=== PATIENT | female | born 1950 | race Caucasian/White ===

== ENCOUNTER → 2020-09-01 | Outpatient (REF) | payer MEDICARE ==
[2020-09-02 13:11] LABS: HEMATOCRIT 38.6 % (36.0-47.0); HEMOGLOBIN 12.3 g/dl (12.0-15.5); MEAN CORPUSCULAR HEMOGLOBIN 30.5 pg (27.0-33.0); MEAN CORPUSCULAR HGB CONC 31.9 g/dl (32.0-36.5); MEAN CORPUSCULAR VOLUME 95.8 fl (80.0-96.0); RED BLOOD COUNT 4.03 10^6/uL (4.00-5.40); WHITE BLOOD COUNT 6.9 10^3/uL (4.0-10.0)
[2020-09-02 13:12] LABS: BASO # 0.1 10^3/uL (0.0-0.2); BASO % 1.6 % (0.0-1.0); EOS # 0.2 10^3/uL (0.0-0.5); EOS % 3.1 % (0.0-3.0); LYMPH # 1.2 10^3/uL (1.5-5.0); LYMPH % 17.5 % (24.0-44.0); MONO # 0.8 10^3/uL (0.0-0.8); MONO % 11.4 % (2.0-8.0); NEUTROPHILS # 4.5 10^3/uL (1.5-8.5); NEUTROPHILS % 66.1 % (36.0-66.0); PLATELET COUNT, AUTOMATED 256 10^3/uL (150-450)
[2020-09-02 13:58] LABS: FOLATE 15.7 NG/ML; FREE T4 1.05 NG/DL (0.76-1.46); VITAMIN B12 LEVEL > 2000 PG/ML
== END ==
LOC: M SFHCADAM 15:03
PROVIDERS: ATTEND Physician Assistant
DX: D72.810 Lymphocytopenia (principal); G62.9 Polyneuropathy, unspecified; Z79.899 Other long term (current) drug therapy

== ENCOUNTER → 2020-10-22 | Outpatient (REF) | payer MEDICARE ==
[2020-10-22 18:05] LABS: INR 0.94; PROTHROMBIN TIME 12.8 SECONDS (12.5-14.3)
[2020-10-22 18:06] LABS: PARTIAL THROMBOPLASTIN TIME 29.9 SECONDS (24.2-38.5)
[2020-10-22 18:27] LABS: BASO # 0.1 10^3/uL (0.0-0.2); BASO % 1.6 % (0.0-1.0); EOS # 0.1 10^3/uL (0.0-0.5); EOS % 1.4 % (0.0-3.0); HEMATOCRIT 40.1 % (36.0-47.0); HEMOGLOBIN 12.9 g/dl (12.0-15.5); LYMPH # 1.3 10^3/uL (1.5-5.0); MEAN CORPUSCULAR HEMOGLOBIN 29.7 pg (27.0-33.0); MEAN CORPUSCULAR HGB CONC 32.2 g/dl (32.0-36.5); MEAN CORPUSCULAR VOLUME 92.4 fl (80.0-96.0); MONO # 0.7 10^3/uL (0.0-0.8); MONO % 10.5 % (2.0-8.0); NEUTROPHILS # 4.8 10^3/uL (1.5-8.5); NEUTROPHILS % 67.1 % (36.0-66.0); PLATELET COUNT, AUTOMATED 238 10^3/uL (150-450); RED BLOOD COUNT 4.34 10^6/uL (4.00-5.40); WHITE BLOOD COUNT 7.1 10^3/uL (4.0-10.0)
[2020-10-22 18:31] LABS: ALBUMIN 3.9 GM/DL (3.2-5.2); ALT/SGPT 25 U/L (12-78); BILIRUBIN,TOTAL 0.4 MG/DL (0.2-1.0); BLOOD UREA NITROGEN 21 MG/DL (7-18); CALCIUM LEVEL 9.2 MG/DL (8.8-10.2); CARBON DIOXIDE LEVEL 30 MEQ/L (21-32); CHLORIDE LEVEL 107 MEQ/L (98-107); CHOLESTEROL LEVEL 185 MG/DL (<200); CHOLESTEROL RISK RATIO 2.434 (<5); CREATININE FOR GFR 0.71 MG/DL (0.55-1.30); GLOMERULAR FILTRATION RATE > 60.0 (>45); GLUCOSE, FASTING 88 MG/DL (70-100); HDL CHOLESTEROL 76 MG/DL (>40); LDL CHOLESTEROL 86 MG/DL (<100); NON-HDL-C 109 MG/DL; POTASSIUM SERUM 4.1 MEQ/L (3.5-5.1); SODIUM LEVEL 142 MEQ/L (136-145); TOTAL PROTEIN 7.1 GM/DL (6.4-8.2); TRIGLYCERIDES LEVEL 115 MG/DL (<150)
[2020-10-22 18:36] LABS: TOTAL 25(OH) VITAMIN D 46.4 NG/ML (30.0-100.0)
== END ==
LOC: M SFHCADAM 16:10
PROVIDERS: ATTEND Physician Assistant
DX: R49.0 Dysphonia (principal); I10 Essential (primary) hypertension; R23.8 Other skin changes; E78.00 Pure hypercholesterolemia, unspecified; M81.0 Age-related osteoporosis without current pathological fracture; M79.7 Fibromyalgia

== ENCOUNTER → 2020-11-18 | Outpatient (CLI) | payer MEDICARE | LOC: M WHC 13:23 | PROVIDERS: ATTEND Physician Assistant | DX: Z12.31 Encounter for screening mammogram for malignant neoplasm of breast (principal); M81.0 Age-related osteoporosis without current pathological fracture ==

== ENCOUNTER → 2020-11-18 | Outpatient (CLI) | payer MEDICARE ==
--- NOTE | 2020-11-18 14:56 | REP ---
INDICATION: ACUTE PAIN OF LEFT SHOULDER. COMPARISON: None. TECHNIQUE: Two views FINDINGS: There is no acute fracture or destructive osseous lesion IMPRESSION: Negative left clavicle <Electronically signed by Elijah Martinez > 11/18/20 [id number]
--- NOTE | 2020-11-18 15:01 | REP ---
INDICATION: ACUTE PAIN OF LEFT SHOULDER. COMPARISON: None. TECHNIQUE: Three views of the left shoulder were performed. FINDINGS: The acromioclavicular and glenohumeral relationships are within normal limits. There is no acute fracture or destructive osseous lesion. A few calcifications are seen in the soft tissues superior to the greater humeral tuberosity within the subacromial space. IMPRESSION: Soft tissue calcifications as described above suggestive of chronic calcific supraspinatus tendinitis. Follow-up with MRI is suggested if clinically relevant. <Electronically signed by Elijah Martinez > 11/18/20 [id number]
== END ==
LOC: M ADAMS 14:38
PROVIDERS: ATTEND Physician Assistant
DX: M25.512 Pain in left shoulder (principal)

== ENCOUNTER → 2020-12-11 | Outpatient (CLI) | payer MEDICARE ==
--- NOTE | 2020-12-11 16:16 | REP ---
INDICATION: RIB PAIN R SIDE. FINDINGS: Multiple views of the right ribs show no fracture or osseous lesion. The accompanying frontal view of the chest shows no cardiomegaly, infiltrates, effusions, or pneumothoraces. IMPRESSION: Negative right rib series. <Electronically signed by Elijah Martinez > 12/11/20 [id number]
--- NOTE | 2020-12-11 16:22 | REP ---
INDICATION: LEFT ELBOW PAIN. COMPARISON: None TECHNIQUE: Four views FINDINGS: There is no acute fracture, dislocation, subluxation, or joint effusion. IMPRESSION: Within normal limits <Electronically signed by Elijah Martinez > 12/11/20 [id number]
== END ==
LOC: M ADAMS 14:19
PROVIDERS: ATTEND Family Medicine
DX: R07.81 Pleurodynia (principal); M25.522 Pain in left elbow

== ENCOUNTER → 2021-02-08 | Outpatient (CLI) | payer MEDICARE ==
--- NOTE | 2021-02-08 14:04 | REP ---
INDICATION: NODULE OF CHEST WALL. COMPARISON: None. TECHNIQUE: Real-time sonographic evaluation of a palpable abnormality left upper chest. FINDINGS: There are no cystic or solid masses. IMPRESSION: Negative ultrasound examination does not obviate further anatomical imaging with modalities such as MRI if a soft tissue mass is of clinical concern. Pre and post gadolinium enhanced MRI is suggested. <Electronically signed by Elijah Martinez > 02/08/21 1400
== END ==
LOC: M RAD 12:56
PROVIDERS: ATTEND Physician Assistant
DX: R22.2 Localized swelling, mass and lump, trunk (principal)

== ENCOUNTER → 2021-02-11 | Outpatient (REF) | payer MEDICARE | LOC: M LAB REF 19:02 | PROVIDERS: ATTEND Physician Assistant | DX: R09.82 Postnasal drip (principal) ==

== ENCOUNTER → 2021-02-11 | Outpatient (CLI) | payer MEDICARE ==
--- NOTE | 2021-02-11 14:32 | REP ---
INDICATION: PAIN IN LUMBAR SPINE. COMPARISON: None. TECHNIQUE: Five views of the lumbar spine are provided. FINDINGS: Lumbar vertebral body heights are preserved. There is degenerative disc disease at L4-5 with osteoarthritic facet sclerosis and hypertrophy bilaterally at L4-5. There is a degenerative grade 1, 5 mm, L4-5 spondylolisthesis. There is also mild discogenic spurring anteriorly at L3-4 and L2-3. There is no evidence of spondylolysis. Facet hypertrophy is also present at L5-S1 bilaterally and to a lesser extent at L3-4. Psoas margins are symmetric. There are clips in right upper quadrant of the abdomen. Sacrum and SI joints are intact. 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 No pars defect is seen. <Electronically signed by Delfino Johnson > 02/11/21 [id number]
--- NOTE | 2021-02-11 14:33 | REP ---
INDICATION: PAIN IN THORACIC SPINE. COMPARISON: None. TECHNIQUE: Four views of the thoracic spine. FINDINGS: Patient is status post ventral discectomy and fusion plating C4 through T1. Thoracic vertebral body heights are preserved alignment is normal. There is discogenic spurring anteriorly at the mid thoracic levels. Pedicles and posterior elements are intact. No paravertebral soft tissue mass is seen. No bony destructive lesion is seen. There are surgical clips in right upper quadrant of the abdomen is well. IMPRESSION: Degenerative disc spurs associated spurring. Ventral discectomy and fusion plating in the lower cervical spine. No acute abnormality. <Electronically signed by Delfino Johnson > 02/11/21 [id number]
== END ==
LOC: M ADAMS 13:55
PROVIDERS: ATTEND Physician Assistant
DX: M46.96 Unspecified inflammatory spondylopathy, lumbar region (principal); M43.16 Spondylolisthesis, lumbar region; M51.36 Other intervertebral disc degeneration, lumbar region; M25.78 Osteophyte, vertebrae; M43.25 Fusion of spine, thoracolumbar region

== ENCOUNTER → 2021-02-17 | Outpatient (REF) | payer MEDICARE ==
[2021-02-17 17:37] LABS: BLOOD UREA NITROGEN 24 MG/DL (7-18); CALCIUM LEVEL 9.5 MG/DL (8.8-10.2); CARBON DIOXIDE LEVEL 29 MEQ/L (21-32); CHLORIDE LEVEL 109 MEQ/L (98-107); CREATININE FOR GFR 0.81 MG/DL (0.55-1.30); GLOMERULAR FILTRATION RATE > 60.0 (>45); GLUCOSE, FASTING 83 MG/DL (70-100); POTASSIUM SERUM 4.2 MEQ/L (3.5-5.1); SODIUM LEVEL 141 MEQ/L (136-145)
== END ==
LOC: M SFHCADAM 14:18
PROVIDERS: ATTEND Physician Assistant
DX: I10 Essential (primary) hypertension (principal)

== ENCOUNTER → 2021-02-26 | Outpatient (CLI) | payer MEDICARE ==
--- NOTE | 2021-02-26 11:17 | REP ---
INDICATION: SOFT TISSUE NODULE NEAR MEDIAL ASPECT OF LCLAVICLE. COMPARISON: None. TECHNIQUE: 3T multiplanar MRI imaging of the left sternoclavicular joint was obtained using various sequences. FINDINGS: The technologist placed skin markers proximal in distal to the region of interest over the left sternoclavicular joint. There is a slight degree of left sternoclavicular joint hypertrophic change compared to the right. This is seen particularly anteriorly. There are no abnormal sternoclavicular joint fluid collections. The cortical and marrow signal seen throughout the exam is within normal limits. IMPRESSION: Mild left sternoclavicular joint hypertrophic change. <Electronically signed by Elijah Martinez > 02/26/21 [id number]
== END ==
LOC: M PLARAD 08:28
PROVIDERS: ATTEND Physician Assistant
DX: M79.89 Other specified soft tissue disorders (principal)

== ENCOUNTER → 2021-05-20 | Outpatient (REF) | payer MEDICARE ==
[2021-05-20 17:21] LABS: BASO # 0.1 10^3/uL (0.0-0.2); BASO % 1.3 % (0.0-1.0); EOS # 0.1 10^3/uL (0.0-0.5); EOS % 1.5 % (0.0-3.0); HEMATOCRIT 38.3 % (36.0-47.0); HEMOGLOBIN 12.3 g/dl (12.0-15.5); LYMPH # 1.3 10^3/uL (1.5-5.0); MEAN CORPUSCULAR HEMOGLOBIN 30.2 pg (27.0-33.0); MEAN CORPUSCULAR HGB CONC 32.1 g/dl (32.0-36.5); MEAN CORPUSCULAR VOLUME 94.1 fl (80.0-96.0); MONO # 0.5 10^3/uL (0.0-0.8); MONO % 9.8 % (2.0-8.0); NEUTROPHILS # 3.4 10^3/uL (1.5-8.5); PLATELET COUNT, AUTOMATED 250 10^3/uL (150-450); RED BLOOD COUNT 4.07 10^6/uL (4.00-5.40); WHITE BLOOD COUNT 5.4 10^3/uL (4.0-10.0)
[2021-05-20 17:25] LABS: ALBUMIN 4.3 GM/DL (3.2-5.2); ALT/SGPT 42 U/L (12-78); BILIRUBIN,DIRECT 0.1 MG/DL (0.0-0.2); BILIRUBIN,TOTAL 0.6 MG/DL (0.2-1.0); BLOOD UREA NITROGEN 19 MG/DL (7-18); CALCIUM LEVEL 9.2 MG/DL (8.8-10.2); CARBON DIOXIDE LEVEL 28 MEQ/L (21-32); CHLORIDE LEVEL 109 MEQ/L (98-107); CREATININE FOR GFR 0.77 MG/DL (0.55-1.30); GLOMERULAR FILTRATION RATE > 60.0 (>45); GLUCOSE, FASTING 88 MG/DL (70-100); IRON (FE) 92 UG/DL (50-170); MAGNESIUM LEVEL 2.3 MG/DL (1.8-2.4); POTASSIUM SERUM 3.8 MEQ/L (3.5-5.1); RHEUMATOID FACTOR QUANT < 10.0 IU/ML (<15.0); SODIUM LEVEL 143 MEQ/L (136-145); TOTAL PROTEIN 7.3 GM/DL (6.4-8.2)
[2021-05-20 17:33] LABS: VITAMIN B12 LEVEL 1237 PG/ML (247-911)
[2021-05-20 18:32] LABS: ERYTHROCYTE SEDIMENTATION RATE 8 mm/hr (0-30)
== END ==
LOC: M SFHCRHEU 14:28
PROVIDERS: ATTEND Internal Medicine
DX: M79.7 Fibromyalgia (principal); M81.0 Age-related osteoporosis without current pathological fracture; M25.50 Pain in unspecified joint; Z79.899 Other long term (current) drug therapy

== ENCOUNTER → 2021-05-21 | Outpatient (CLI) | payer MEDICARE | LOC: M ADAMS 10:09 | PROVIDERS: ATTEND Internal Medicine | DX: M25.50 Pain in unspecified joint (principal) ==

== ENCOUNTER → 2021-07-16 | Outpatient (REF) | payer MEDICARE ==
[2021-07-16 16:54] LABS: APPEARANCE, URINE HAZY (CLEAR); BACTERIA, URINE AUTO 1+ (NEGATIVE); BILIRUBIN, URINE AUTO NEGATIVE (NEGATIVE); BLOOD, URINE BLOOD NEGATIVE (NEGATIVE); CALCIUM OXALATE CRYSTALS MODERATE; COLOR, URINE YELLOW (YELLOW); GLUCOSE, URINE (UA) AUTO NEGATIVE (NEGATIVE); KETONE, URINE AUTO NEGATIVE (NEGATIVE); LEUKOCYTE ESTERASE, URINE AUTO NEGATIVE (NEGATIVE); MUCUS, URINE SMALL (NEGATIVE); NITRITE, URINE AUTO NEGATIVE (NEGATIVE); PROTEIN, URINE AUTO NEGATIVE (NEGATIVE); RBC, URINE AUTO 2 /HPF (0-3); SPECIFIC GRAVITY URINE AUTO 1.018 (1.002-1.035); SQUAMOUS EPITHELIAL CELL UR AU 2 /HPF (0-6); UROBILINOGEN, URINE AUTO 0.2 mg/dL (0.0-2.0); WBC, URINE AUTO 2 /HPF (0-3)
[2021-07-16 17:10] LABS: C REACTIVE PROTEIN QUANTITATIV < 0.30 MG/DL (0.00-0.30); COMPLEMENT C3 111 MG/DL (90-180); COMPLEMENT C4 32 MG/DL (10-40)
[2021-07-16 17:12] LABS: TOTAL PROTEIN,RANDOM URINE 14.8 MG/DL (0.0-12.0)
== END ==
LOC: M SFHCRHEU 12:16
PROVIDERS: ATTEND Internal Medicine
DX: M06.4 Inflammatory polyarthropathy (principal)

== ENCOUNTER → 2021-08-13 | Outpatient (CLI) | payer MEDICARE | LOC: M RAD 07:53 | PROVIDERS: ATTEND Internal Medicine | DX: M79.89 Other specified soft tissue disorders (principal); M85.441 Solitary bone cyst, right hand ==

== ENCOUNTER → 2021-09-08 | Outpatient (CLI) | payer MEDICARE | LOC: M PLAIMG 09:55 | PROVIDERS: ATTEND Physician Assistant | DX: N20.0 Calculus of kidney (principal); J98.11 Atelectasis ==

== ENCOUNTER 2021-12-29 14:02 | Emergency (ER) | payer MEDICARE ==
[2021-12-29] MEDS ORDERED: NITROGLYCERIN 0.4 MG SUBL TABLET SL PRN (14:40)
[2021-12-29 14:42] LABS: BASO # 0.1 10^3/uL (0.0-0.2); BASO % 0.7 % (0.0-1.0); EOS # 0.1 10^3/uL (0.0-0.5); EOS % 0.9 % (0.0-3.0); HEMATOCRIT 40.9 % (36.0-47.0); HEMOGLOBIN 13.7 g/dl (12.0-15.5); LYMPH # 1.5 10^3/uL (1.5-5.0); LYMPH % 14.6 % (24.0-44.0); MEAN CORPUSCULAR HEMOGLOBIN 29.8 pg (27.0-33.0); MEAN CORPUSCULAR HGB CONC 33.5 g/dl (32.0-36.5); MEAN CORPUSCULAR VOLUME 88.9 fl (80.0-96.0); MONO # 0.7 10^3/uL (0.0-0.8); MONO % 6.7 % (2.0-8.0); NEUTROPHILS # 7.8 10^3/uL (1.5-8.5); NEUTROPHILS % 76.6 % (36.0-66.0); PLATELET COUNT, AUTOMATED 319 10^3/uL (150-450); WHITE BLOOD COUNT 10.2 10^3/uL (4.0-10.0)
[2021-12-29 14:50] VITALS: BP 109/56
[2021-12-29] MEDS ORDERED: HEPARIN SOD (PORCINE) 5000UNITS/ML 1ML VIAL/SYRINGE IV ONE (14:50)
[2021-12-29] MEDS ORDERED: HEPARIN DRIP 25,000 UNITS in IV 1 EA IV SCH (14:50)
[2021-12-29] MEDS ORDERED: TENECTEPLASE 50 MG KIT (TNKase) (J3101 PER 1MG) IV ONE (14:50)
[2021-12-29 14:52] LABS: INR 0.93; PROTHROMBIN TIME 12.9 SECONDS (12.7-14.5)
[2021-12-29 14:53] LABS: PARTIAL THROMBOPLASTIN TIME 26.6 SECONDS (25.9-37.0)
[2021-12-29] MEDS ORDERED: TENECTEPLASE 50 MG KIT (TNKase) (J3101 PER 1MG) As Ordered ONE (14:53)
[2021-12-29] MEDS ORDERED: MORPHINE 2 MG/ML 1ML VIAL IV PRN (15:05)
[2021-12-29] MEDS ORDERED: ONDANSETRON 4MG 2ML VIAL IV ONE (15:05)
[2021-12-29 15:12] LABS: MB/CK RELATIVE INDEX 2.59 (< OR =4)
[2021-12-29 15:17] LABS: ALT/SGPT 27 U/L (12-78); BILIRUBIN,DIRECT < 0.1 MG/DL (0.0-0.2); BILIRUBIN,TOTAL 0.3 MG/DL (0.2-1.0); BLOOD UREA NITROGEN 18 MG/DL (7-18); CALCIUM LEVEL 9.6 MG/DL (8.8-10.2); CARBON DIOXIDE LEVEL 21 MEQ/L (21-32); CHLORIDE LEVEL 110 MEQ/L (98-107); CREATININE FOR GFR 0.93 MG/DL (0.55-1.30); GLOMERULAR FILTRATION RATE > 60.0 (>45); GLUCOSE, FASTING 98 MG/DL (70-100); LIPASE 77 U/L (73-393); NT-PRO BNP 121 PG/ML (<125); POTASSIUM SERUM 3.8 MEQ/L (3.5-5.1); SODIUM LEVEL 139 MEQ/L (136-145); TOTAL PROTEIN 6.9 GM/DL (6.4-8.2)
[2021-12-29 15:44] LABS: RSV AMPLIFICATION NEGATIVE (NEGATIVE)
[2021-12-29 15:50] VITALS: BP 166/72
[2021-12-29 16:25] LABS: CK-MB VALUE MASS 3.5 NG/ML (<3.6); MB/CK RELATIVE INDEX 2.76 (< OR =4)
== END 2021-12-29 15:56 | disposition short-term general hospital (02) ==
LOC: M ED 14:02 → EDBD 14:02 → M ED 15:56
DX: I21.3 ST elevation (STEMI) myocardial infarction of unspecified site (principal); I10 Essential (primary) hypertension; E78.5 Hyperlipidemia, unspecified; K21.9 Gastro-esophageal reflux disease without esophagitis; M79.7 Fibromyalgia; M06.9 Rheumatoid arthritis, unspecified; A60.00 Herpesviral infection of urogenital system, unspecified; Z90.49 Acquired absence of other specified parts of digestive tract; Z90.89 Acquired absence of other organs; Z90.710 Acquired absence of both cervix and uterus; Z91.040 Latex allergy status
CPT/HCPCS: 71045; 80047; 80048; 80076; 82550; 82553; 83690; 83880; 84439; 84443; 84484; 85025; 85610; 85730; 87631; 93005; 93041; 94760; 96365; 96375; 99291; 99292; J1644; J2270; J2405; J3101

== ENCOUNTER → 2022-03-09 | Outpatient (CLI) | payer MEDICARE | LOC: M WHC 13:04 | PROVIDERS: ATTEND Physician Assistant | DX: Z12.31 Encounter for screening mammogram for malignant neoplasm of breast (principal) ==

== ENCOUNTER → 2022-05-06 | Outpatient (CLI) | payer MEDICARE ==
[2022-05-06 08:55] LABS: HEMATOCRIT 35.6 % (36.0-47.0); HEMOGLOBIN 11.9 g/dl (12.0-15.5); MEAN CORPUSCULAR HEMOGLOBIN 31.9 pg (27.0-33.0); MEAN CORPUSCULAR HGB CONC 33.4 g/dl (32.0-36.5); MEAN CORPUSCULAR VOLUME 95.4 fl (80.0-96.0); PLATELET COUNT, AUTOMATED 286 10^3/uL (150-450); RED BLOOD COUNT 3.73 10^6/uL (4.00-5.40); WHITE BLOOD COUNT 6.6 10^3/uL (4.0-10.0)
[2022-05-06 09:16] LABS: ALKALINE PHOSPHATASE 72 U/L (46-116); ALT/SGPT 47 U/L (7.0-40); AST/SGOT 27 U/L (<34); BILIRUBIN,TOTAL 0.5 MG/DL (0.3-1.2); BLOOD UREA NITROGEN 21 MG/DL (9-23); CALCIUM LEVEL 9.9 MG/DL (8.3-10.6); CARBON DIOXIDE LEVEL 26 MMOL/L (20-31); CHLORIDE LEVEL 104 MMOL/L (98-107); GLOMERULAR FILTRATION RATE > 60.0 (>45); GLUCOSE, FASTING 66 MG/DL (74-106); POTASSIUM SERUM 4.9 MMOL/L (3.5-5.1); SODIUM LEVEL 140 MMOL/L (136-145); TOTAL PROTEIN 6.5 G/DL (5.7-8.2)
== END ==
LOC: M RAD 07:20
PROVIDERS: ATTEND Physician Assistant
DX: R91.8 Other nonspecific abnormal finding of lung field (principal); R60.0 Localized edema; I25.118 Atherosclerotic heart disease of native coronary artery with other forms of angina pectoris; M79.89 Other specified soft tissue disorders; Z95.5 Presence of coronary angioplasty implant and graft

== ENCOUNTER → 2022-05-20 | Outpatient (CLI) | payer MEDICARE | LOC: M ADAMS 07:39 | PROVIDERS: ATTEND Physician Assistant | DX: J98.11 Atelectasis (principal) ==

== ENCOUNTER → 2022-06-07 | Outpatient (REF) | payer MEDICARE ==
[2022-06-07 14:51] LABS: FREE T4 1.23 NG/DL (0.89-1.76)
[2022-06-07 14:52] LABS: VITAMIN B12 LEVEL 447 PG/ML (211-911)
[2022-06-07 15:10] LABS: FOLATE > 24.0 NG/ML (>5.4)
== END ==
LOC: M SFHCADAM 10:17
PROVIDERS: ATTEND Physician Assistant
DX: I25.118 Atherosclerotic heart disease of native coronary artery with other forms of angina pectoris (principal); R41.3 Other amnesia

== ENCOUNTER → 2022-06-20 | Outpatient (CLI) | payer MEDICARE | LOC: M PLAIMG 08:53 | PROVIDERS: ATTEND Physician Assistant | DX: R41.3 Other amnesia (principal) ==

== ENCOUNTER → 2022-07-04 | Outpatient (REF) | payer MEDICARE ==
[2022-07-04 14:21] LABS: BLOOD UREA NITROGEN 19 MG/DL (9-23); CARBON DIOXIDE LEVEL 31 MMOL/L (20-31); CHLORIDE LEVEL 104 MMOL/L (98-107); CREATININE FOR GFR 0.79 MG/DL (0.55-1.30); GLOMERULAR FILTRATION RATE > 60.0 (>45); GLUCOSE, FASTING 77 MG/DL (74-106); SODIUM LEVEL 142 MMOL/L (136-145)
== END ==
LOC: M SFHCADAM 08:34
PROVIDERS: ATTEND Physician Assistant
DX: I10 Essential (primary) hypertension (principal)

== ENCOUNTER → 2022-07-12 | Outpatient (CLI) | payer MEDICARE ==
[~2022-07-12] MED LIST: ISOVUE-370 76% 100ML VIAL As Ordered ONE
== END ==
LOC: M RAD 09:29
PROVIDERS: ATTEND Physician Assistant
DX: R91.8 Other nonspecific abnormal finding of lung field (principal)
CPT/HCPCS: 71260; Q9967

== ENCOUNTER → 2022-07-18 | Outpatient (CLI) | payer MEDICARE | LOC: M LAB 09:56 | PROVIDERS: ATTEND Nurse Practitioner Family | DX: I20.8 Other forms of angina pectoris (principal) ==

== ENCOUNTER 2022-08-23 14:08 | Emergency (ER) | payer MEDICARE ==
[~2022-08-23] VITALS: Ht 165.1 cm; Wt 63.1 kg
[2022-08-23 14:45] VITALS: BP 134/63
[2022-08-23 15:50] LABS: BASO # 0.1 10^3/uL (0.0-0.2); BASO % 0.7 % (0.0-1.0); EOS # 0.1 10^3/uL (0.0-0.5); EOS % 1.4 % (0.0-3.0); HEMATOCRIT 36.5 % (36.0-47.0); HEMOGLOBIN 12.3 g/dl (12.0-15.5); LYMPH # 1.7 10^3/uL (1.5-5.0); LYMPH % 23.6 % (24.0-44.0); MEAN CORPUSCULAR HEMOGLOBIN 30.9 pg (27.0-33.0); MEAN CORPUSCULAR HGB CONC 33.7 g/dl (32.0-36.5); MEAN CORPUSCULAR VOLUME 91.7 fl (80.0-96.0); MONO # 0.6 10^3/uL (0.0-0.8); MONO % 8.3 % (2.0-8.0); NEUTROPHILS # 4.7 10^3/uL (1.5-8.5); NEUTROPHILS % 65.6 % (36.0-66.0); PLATELET COUNT, AUTOMATED 271 10^3/uL (150-450); RED BLOOD COUNT 3.98 10^6/uL (4.00-5.40); WHITE BLOOD COUNT 7.2 10^3/uL (4.0-10.0)
[2022-08-23] MEDS ORDERED: ISOVUE-370 76% 100ML VIAL As Ordered ONE (15:53)
[2022-08-23 16:00] LABS: INR 0.91; PROTHROMBIN TIME 12.5 SECONDS (12.5-14.5)
[2022-08-23 16:01] LABS: PARTIAL THROMBOPLASTIN TIME 24.4 SECONDS (24.8-34.2)
[2022-08-23 16:13] LABS: LIPASE 25 U/L (12-53)
[2022-08-23 16:15] LABS: ALKALINE PHOSPHATASE 98 U/L (46-116); ALT/SGPT 24 U/L (7.0-40); AST/SGOT 19 U/L (<34); BILIRUBIN,DIRECT < 0.1 MG/DL (<0.4); BILIRUBIN,TOTAL 0.3 MG/DL (0.3-1.2); BLOOD UREA NITROGEN 17 MG/DL (9-23); CALCIUM LEVEL 9.1 MG/DL (8.3-10.6); CARBON DIOXIDE LEVEL 29 MMOL/L (20-31); CHLORIDE LEVEL 103 MMOL/L (98-107); CK-MB VALUE MASS < 1.0 NG/ML (<3.6); CREATININE FOR GFR 0.72 MG/DL (0.55-1.30); GLOMERULAR FILTRATION RATE > 60.0 (>45); GLUCOSE, FASTING 82 MG/DL (74-106); POTASSIUM SERUM 3.8 MMOL/L (3.5-5.1); SODIUM LEVEL 138 MMOL/L (136-145); TOTAL PROTEIN 6.5 G/DL (5.7-8.2)
[2022-08-23 16:16] LABS: CPK CREATINE PHOSPHOKINASE 64 U/L (34-145); MB/CK RELATIVE INDEX 1.56 (< OR =4)
[2022-08-23 16:44] LABS: RSV AMPLIFICATION NEGATIVE (NEGATIVE)
[2022-08-23 17:17] LABS: CK-MB VALUE MASS < 1.0 NG/ML (<3.6)
[2022-08-23 17:18] LABS: CPK CREATINE PHOSPHOKINASE 63 U/L (34-145); MB/CK RELATIVE INDEX 1.58 (< OR =4)
== END 2022-08-23 19:10 | disposition home or self-care (01) ==
LOC: M ED 14:08
DX: G89.29 Other chronic pain (principal); R07.9 Chest pain, unspecified; R60.9 Edema, unspecified; I25.10 Atherosclerotic heart disease of native coronary artery without angina pectoris; Z90.89 Acquired absence of other organs; Z90.710 Acquired absence of both cervix and uterus; Z91.040 Latex allergy status
CPT/HCPCS: 36415; 71045; 71275; 74177; 80047; 80048; 80076; 81001; 82550; 82553; 83605; 83690; 83880; 84484; 85025; 85610; 85730; 87086; 87631; 93005; 93041; 94760; 99285; Q9967

== ENCOUNTER → 2022-09-01 | Outpatient (CLI) | payer MEDICARE | LOC: M WHC 10:12 | PROVIDERS: ATTEND Physician Assistant | DX: M81.0 Age-related osteoporosis without current pathological fracture (principal) ==

== ENCOUNTER → 2022-10-24 | Outpatient (CLI) | payer MEDICARE | LOC: M WHC 08:07 | PROVIDERS: ATTEND Physician Assistant | DX: M81.0 Age-related osteoporosis without current pathological fracture (principal) ==

== ENCOUNTER → 2022-11-29 | Outpatient (REF) | payer MEDICARE ==
[2022-11-29 13:14] LABS: BASO # 0.1 10^3/uL (0.0-0.2); BASO % 0.7 % (0.0-1.0); EOS % 0.6 % (0.0-3.0); HEMATOCRIT 40.8 % (36.0-47.0); HEMOGLOBIN 13.6 g/dl (12.0-15.5); LYMPH # 0.7 10^3/uL (1.5-5.0); LYMPH % 10.3 % (24.0-44.0); MEAN CORPUSCULAR HEMOGLOBIN 30.9 pg (27.0-33.0); MEAN CORPUSCULAR HGB CONC 33.3 g/dl (32.0-36.5); MEAN CORPUSCULAR VOLUME 92.7 fl (80.0-96.0); MONO # 0.7 10^3/uL (0.0-0.8); MONO % 10.8 % (2.0-8.0); NEUTROPHILS # 5.2 10^3/uL (1.5-8.5); PLATELET COUNT, AUTOMATED 244 10^3/uL (150-450); WHITE BLOOD COUNT 6.7 10^3/uL (4.0-10.0)
[2022-11-29 13:40] LABS: IRON (FE) 76 UG/DL (50-170); TOTAL IRON BINDING CAPACITY 304 UG/DL (250-425)
[2022-11-29 13:41] LABS: ALBUMIN 4.1 G/DL (3.2-5.2); ALKALINE PHOSPHATASE 115 U/L (46-116); ALT/SGPT 19 U/L (7.0-40); AST/SGOT 12 U/L (<34); BILIRUBIN,TOTAL 0.4 MG/DL (0.3-1.2); BLOOD UREA NITROGEN 16 MG/DL (9-23); CALCIUM LEVEL 9.3 MG/DL (8.3-10.6); CARBON DIOXIDE LEVEL 28 MMOL/L (20-31); CHLORIDE LEVEL 105 MMOL/L (98-107); CHOLESTEROL LEVEL 137 MG/DL (<200); CHOLESTEROL RISK RATIO 2.76 (<5); CREATININE FOR GFR 0.73 MG/DL (0.55-1.30); FREE T4 1.26 NG/DL (0.89-1.76); GLOMERULAR FILTRATION RATE > 60.0 (>39); GLUCOSE, FASTING 88 MG/DL (74-106); HDL CHOLESTEROL 49.6 MG/DL (>40); LDL CHOLESTEROL 65.4 MG/DL (<100); NON-HDL-C 87.4 MG/DL; SODIUM LEVEL 139 MMOL/L (136-145); TOTAL PROTEIN 6.8 G/DL (5.7-8.2); TRIGLYCERIDES LEVEL 110 MG/DL (<150)
[2022-11-29 13:42] LABS: FERRITIN 54.5 NG/ML (7.3-270.7); THYROID STIMULATING HORMONE 1.117 uIU/ML (0.55-4.78)
[2022-11-29 13:43] LABS: FOLATE > 24.0 NG/ML (>5.4); VITAMIN B12 LEVEL 465 PG/ML (211-911)
== END ==
LOC: M SFHCADAM 09:21
PROVIDERS: ATTEND Physician Assistant
DX: D64.9 Anemia, unspecified (principal); G47.33 Obstructive sleep apnea (adult) (pediatric); M72.0 Palmar fascial fibromatosis [Dupuytren]; I10 Essential (primary) hypertension; E78.00 Pure hypercholesterolemia, unspecified; M81.0 Age-related osteoporosis without current pathological fracture

== ENCOUNTER → 2022-12-29 | Outpatient (CLI) | payer MEDICARE ==
[~2022-12-29] MED LIST changes: -ISOVUE-370 76% 100ML VIAL As Ordered ONE; +LEVAINH INH; +PRED20TA PO
== END ==
LOC: M SOG 08:17
PROVIDERS: ATTEND Physician Assistant
DX: M79.641 Pain in right hand (principal); M79.642 Pain in left hand

== ENCOUNTER → 2023-01-23 | Outpatient (CLI) | payer MEDICARE | LOC: M ADAMS 14:22 | PROVIDERS: ATTEND Internal Medicine | DX: M19.041 Primary osteoarthritis, right hand (principal); M19.042 Primary osteoarthritis, left hand ==

== ENCOUNTER → 2023-01-23 | Outpatient (REF) | payer MEDICARE | LOC: M SFHCRHEU 13:21 | PROVIDERS: ATTEND Internal Medicine | DX: M06.4 Inflammatory polyarthropathy (principal) ==

== ENCOUNTER → 2023-01-26 | Outpatient (CLI) | payer MEDICARE | LOC: M CARPUL 15:09 | PROVIDERS: ATTEND Internal Medicine Critical Care Medicine | DX: I27.20 Pulmonary hypertension, unspecified (principal) ==

== ENCOUNTER → 2023-01-30 | Outpatient (CLI) | payer MEDICARE | LOC: M PLAIMG 09:30 | PROVIDERS: ATTEND Internal Medicine | DX: M19.041 Primary osteoarthritis, right hand (principal) ==

== ENCOUNTER 2023-04-28 09:59 | Day surgery (SDC) | payer MEDICARE ==
[~2023-04-28] VITALS: Ht 165.1 cm; Wt 59.5 kg
[~2023-04-28 09:59] MED LIST changes: +ACYC200C8 PO; +ALEN70TA82 PO; +AMLO1TAB24 PO; +ASPI81TA26 PO; +ATOR40TA75 PO; +CLOP75TA2 PO; +CVS-161 PO; +CVS500CA5 PO; +DEXI60CA2 PO; +DIPH-435 PO; +FLUT15.820; +FURO20TA2 PO; +IRON27TA2 PO; +ISOS1TAB36 PO; +LEVA45AE INH; +LOSA100T46 PO; +METO50TA7 PO; +MONT10TA97 PO; +NITR0.4S14 SL; +NORT10CA2 PO; +NS 1,000 ML IV ONE; +OILCAP PO; +POTA-141 PO; +RA N1TAB PO; +SYMB16INH INH; +VITA100093 PO
[2023-04-28] MEDS ORDERED: fentaNYL 100 MCG/2 ML INJECTION As Ordered ONE (11:17)
[2023-04-28] MEDS ORDERED: propofoL 200 MG/20 ML VIAL As Ordered ONE ×3 (11:18→11:33)
[2023-04-28] MEDS ORDERED: LIDOCAINE 2% 100MG/5ML SDV (FOR ANES.) As Ordered ONE (11:18)
[2023-04-28 11:59] VITALS: TEMP 97.6
[2023-04-28 12:28] VITALS: BP 148/67; O2SAT 98
== END 2023-04-28 12:30 | disposition home or self-care (01) ==
LOC: M OPP 09:59
PROVIDERS: ATTEND Internal Medicine Gastroenterology
DX: Z12.11 Encounter for screening for malignant neoplasm of colon (principal); D12.2 Benign neoplasm of ascending colon; D12.4 Benign neoplasm of descending colon; K31.7 Polyp of stomach and duodenum; Q43.8 Other specified congenital malformations of intestine; Z86.010 Personal history of colon polyps; Z90.49 Acquired absence of other specified parts of digestive tract; I25.10 Atherosclerotic heart disease of native coronary artery without angina pectoris; I25.2 Old myocardial infarction; I10 Essential (primary) hypertension; E78.00 Pure hypercholesterolemia, unspecified; K21.9 Gastro-esophageal reflux disease without esophagitis; Z79.899 Other long term (current) drug therapy; Z79.82 Long term (current) use of aspirin; Z90.710 Acquired absence of both cervix and uterus; Z95.5 Presence of coronary angioplasty implant and graft
CPT/HCPCS: 43251; 45385; 88305; J3010

== ENCOUNTER 2023-05-03 13:09 | Emergency (ER) | payer MEDICARE ==
[~2023-05-03] VITALS: Ht 165.1 cm; Wt 61.3 kg
[~2023-05-03 13:09] MED LIST changes: -NS 1,000 ML IV ONE
[2023-05-03] MEDS ORDERED: TETRACAINE 0.5% OPHTH SOLN 4ML OU ONE (14:45)
[2023-05-03] MEDS ORDERED: ISOVUE-370 76% 100ML VIAL As Ordered ONE (16:10)
[2023-05-03 16:12] LABS: BASO # 0.1 10^3/uL (0.0-0.2); BASO % 0.8 % (0.0-1.0); EOS # 0.1 10^3/uL (0.0-0.5); EOS % 0.7 % (0.0-3.0); HEMATOCRIT 40.3 % (36.0-47.0); LYMPH # 1.5 10^3/uL (1.5-5.0); MEAN CORPUSCULAR HEMOGLOBIN 31.1 pg (27.0-33.0); MEAN CORPUSCULAR HGB CONC 34.7 g/dl (32.0-36.5); MEAN CORPUSCULAR VOLUME 89.6 fl (80.0-96.0); MONO # 0.5 10^3/uL (0.0-0.8); MONO % 6.7 % (2.0-8.0); NEUTROPHILS # 5.5 10^3/uL (1.5-8.5); NEUTROPHILS % 72.5 % (36.0-66.0); PLATELET COUNT, AUTOMATED 276 10^3/uL (150-450); WHITE BLOOD COUNT 7.6 10^3/uL (4.0-10.0)
[2023-05-03 16:36] LABS: PROTHROMBIN TIME 12.9 SECONDS (12.5-14.5)
[2023-05-03 16:37] LABS: PARTIAL THROMBOPLASTIN TIME 26.9 SECONDS (24.8-34.2)
[2023-05-03 16:39] LABS: CK-MB VALUE MASS < 1.0 NG/ML (<3.6)
[2023-05-03 16:41] LABS: CPK CREATINE PHOSPHOKINASE 89 U/L (34-145); MB/CK RELATIVE INDEX 1.12 (< OR =4)
[2023-05-03 18:47] VITALS: BP 185/83; TEMP 98.2; O2SAT 100
== END 2023-05-03 19:00 | disposition home or self-care (01) ==
LOC: M ED 13:09
DX: H53.132 Sudden visual loss, left eye (principal); I10 Essential (primary) hypertension; E78.5 Hyperlipidemia, unspecified; I25.10 Atherosclerotic heart disease of native coronary artery without angina pectoris; I25.2 Old myocardial infarction; M79.7 Fibromyalgia; Z98.49 Cataract extraction status, unspecified eye; Z79.82 Long term (current) use of aspirin; Z79.899 Other long term (current) drug therapy; Z91.040 Latex allergy status
CPT/HCPCS: 70450; 70496; 70498; 70551; 80047; 82550; 82553; 84484; 85025; 85610; 85652; 85730; 86140; 93005; 93041; 94760; 99284; Q9967

== ENCOUNTER → 2023-05-25 | Outpatient (REF) | payer MEDICARE ==
[2023-05-25 14:10] LABS: BLOOD UREA NITROGEN 18 MG/DL (9-23); CALCIUM LEVEL 9.8 MG/DL (8.3-10.6); CARBON DIOXIDE LEVEL 30 MMOL/L (20-31); CHLORIDE LEVEL 108 MMOL/L (98-107); CREATININE FOR GFR 0.67 MG/DL (0.55-1.30); GLOMERULAR FILTRATION RATE > 60.0 (>39); GLUCOSE, FASTING 92 MG/DL (74-106); POTASSIUM SERUM 4.6 MMOL/L (3.5-5.1); SODIUM LEVEL 141 MMOL/L (136-145)
== END ==
LOC: M SFHCADAM 09:24
PROVIDERS: ATTEND Physician Assistant
DX: Z01.818 Encounter for other preprocedural examination (principal)

== ENCOUNTER → 2023-08-02 | Outpatient (CLI) | payer MEDICARE ==
[2023-08-02 13:49] LABS: CHOLESTEROL RISK RATIO 2.54 (<5); HDL CHOLESTEROL 49.9 MG/DL (>40); LDL CHOLESTEROL 49.3 MG/DL (<100); NON-HDL-C 77.1 MG/DL
== END ==
LOC: M LAB 12:42
PROVIDERS: ATTEND Internal Medicine Cardiovascular Disease
DX: E78.00 Pure hypercholesterolemia, unspecified (principal)

== ENCOUNTER 2023-10-05 12:14 | Emergency (ER) | payer MEDICARE ==
[~2023-10-05] VITALS: Ht 165.1 cm; Wt 60.0 kg
[~2023-10-05 12:14] MED LIST changes: +CRAN500C11 PO; -CVS500CA5 PO
[2023-10-05 16:03] LABS: BASO # 0.1 10^3/uL (0.0-0.2); EOS # 0.1 10^3/uL (0.0-0.5); EOS % 1.2 % (0.0-3.0); HEMATOCRIT 39.3 % (36.0-47.0); HEMOGLOBIN 13.8 g/dl (12.0-15.5); LYMPH # 1.6 10^3/uL (1.5-5.0); MEAN CORPUSCULAR HEMOGLOBIN 31.2 pg (27.0-33.0); MEAN CORPUSCULAR HGB CONC 35.1 g/dl (32.0-36.5); MEAN CORPUSCULAR VOLUME 88.7 fl (80.0-96.0); MONO # 0.4 10^3/uL (0.0-0.8); MONO % 7.3 % (2.0-8.0); NEUTROPHILS # 3.8 10^3/uL (1.5-8.5); NEUTROPHILS % 63.2 % (36.0-66.0); PLATELET COUNT, AUTOMATED 272 10^3/uL (150-450); RED BLOOD COUNT 4.43 10^6/uL (4.00-5.40)
[2023-10-05 16:31] LABS: LIPASE 23 U/L (12-53)
[2023-10-05 16:33] LABS: ALBUMIN 4.3 G/DL (3.2-5.2); ALKALINE PHOSPHATASE 125 U/L (46-116); ALT/SGPT 59 U/L (7.0-40); AST/SGOT 87 U/L (<34); BILIRUBIN,DIRECT 0.2 MG/DL (<0.4); BILIRUBIN,TOTAL 0.6 MG/DL (0.3-1.2); BLOOD UREA NITROGEN 19 MG/DL (9-23); CALCIUM LEVEL 9.7 MG/DL (8.3-10.6); CARBON DIOXIDE LEVEL 28 MMOL/L (20-31); CHLORIDE LEVEL 107 MMOL/L (98-107); CREATININE FOR GFR 0.65 MG/DL (0.55-1.30); GLOMERULAR FILTRATION RATE > 60.0 (>39); GLUCOSE, FASTING 83 MG/DL (74-106); POTASSIUM SERUM 4.3 MMOL/L (3.5-5.1); SODIUM LEVEL 140 MMOL/L (136-145); TOTAL PROTEIN 6.8 G/DL (5.7-8.2)
[2023-10-05 16:36] LABS: THYROID STIMULATING HORMONE 1.531 uIU/ML (0.55-4.78)
[2023-10-05 16:45] LABS: CPK CREATINE PHOSPHOKINASE 2650 U/L (34-145)
[2023-10-05 16:46] LABS: CK-MB VALUE MASS 10.4 NG/ML (<3.6); MB/CK RELATIVE INDEX 0.39 (< OR =4)
[2023-10-05] MEDS: NS 500 ML IV ONE (16:50)
[2023-10-05] MEDS ORDERED: ISOVUE-370 76% 100ML VIAL As Ordered ONE (17:00)
[2023-10-05] MEDS ORDERED: LABETALOL 100MG/20ML VIAL IV PRN (17:15)
[2023-10-05] MEDS: ASPIRIN 81MG CHEW TABLET PO ONE (17:47)
[2023-10-05] MEDS: NITROGLYCERIN 0.4MG SUBL TABLET SL PRN (17:48)
[2023-10-05] MEDS: MORPHINE 2 MG/ML 1ML VIAL IV PRN (17:49)
[2023-10-05 17:50] VITALS: BP 194/87
[2023-10-05] MEDS: hydrALAZINE 20MG/ML 1ML VIAL IV PRN (17:50)
[2023-10-05 18:13] LABS: INR 1.06; PARTIAL THROMBOPLASTIN TIME 28.1 SECONDS (24.8-34.2); PROTHROMBIN TIME 13.5 SECONDS (12.5-14.5)
[2023-10-05 18:20] LABS: ETHYL ALCOHOL (ETHANOL) < 0.003 % (0.000-0.010)
[2023-10-05 18:22] LABS: SALICYLATE LEVEL < 3.0 MG/DL (<30)
[2023-10-05 18:34] LABS: CPK CREATINE PHOSPHOKINASE 2405 U/L (34-145); MB/CK RELATIVE INDEX 0.41 (< OR =4)
[2023-10-05 19:19] VITALS: BP 147/65; O2SAT 100
[2023-10-05] MEDS: diazePAM 5MG TABLET PO ONE (19:49)
[2023-10-05] MEDS: HYDROMORPHONE HCL 0.5 MG/ 0.5 ML SYRINGE IV ONE ×2 (19:51→22:29)
[2023-10-05 22:19] LABS: BARBITURATES URINE NEGATIVE (NEGATIVE); COCAINE METABOLITE URINE NEGATIVE (NEGATIVE); METHADONE URINE NEGATIVE (NEGATIVE); PHENCYCLIDINE URINE NEGATIVE (NEGATIVE)
[2023-10-05 22:20] LABS: AMPHETAMINES LEVEL URINE NEGATIVE (NEGATIVE); BENZODIAZEPINES URINE NEGATIVE (NEGATIVE); CANNABINOIDS URINE NEGATIVE (NEGATIVE); OPIATES URINE POSITIVE (NEGATIVE)
[2023-10-05 22:30] VITALS: BP 133/63; TEMP 97.6; O2SAT 87
== END 2023-10-06 00:07 | disposition short-term general hospital (02) ==
LOC: M ED 12:14
DX: I20.0 Unstable angina (principal); I25.2 Old myocardial infarction; I10 Essential (primary) hypertension; E78.5 Hyperlipidemia, unspecified; N20.0 Calculus of kidney; M79.7 Fibromyalgia; F10.10 Alcohol abuse, uncomplicated; Z91.040 Latex allergy status; Z79.899 Other long term (current) drug therapy; Z79.2 Long term (current) use of antibiotics; Z79.1 Long term (current) use of non-steroidal anti-inflammatories (NSAID); Z79.810 Long term (current) use of selective estrogen receptor modulators (SERMs)
CPT/HCPCS: 70450; 70496; 70498; 71046; 71260; 74177; 80048; 80076; 80143; 80307; 82077; 82140; 82550; 82553; 83690; 83880; 84443; 84484; 85025; 85610; 85730; 93005; 93041; 94760; 96361; 96374; 96375; 96376; 99285; J0360; J1170; Q9967

== ENCOUNTER → 2023-10-19 | Outpatient (REF) | payer MEDICARE ==
[2023-10-19 18:57] LABS: CPK CREATINE PHOSPHOKINASE 89 U/L (34-145)
[2023-10-19 18:59] LABS: ALBUMIN 4.3 G/DL (3.2-5.2); ALKALINE PHOSPHATASE 124 U/L (46-116); ALT/SGPT 49 U/L (7.0-40); AST/SGOT 17 U/L (<34); BILIRUBIN,TOTAL 0.4 MG/DL (0.3-1.2); BLOOD UREA NITROGEN 25 MG/DL (9-23); CALCIUM LEVEL 9.7 MG/DL (8.3-10.6); CARBON DIOXIDE LEVEL 28 MMOL/L (20-31); CHLORIDE LEVEL 106 MMOL/L (98-107); CREATININE FOR GFR 0.77 MG/DL (0.55-1.30); GLOMERULAR FILTRATION RATE > 60.0 (>39); GLUCOSE, FASTING 99 MG/DL (74-106); POTASSIUM SERUM 4.6 MMOL/L (3.5-5.1); SODIUM LEVEL 141 MMOL/L (136-145); TOTAL PROTEIN 6.8 G/DL (5.7-8.2)
== END ==
LOC: M SFHCADAM 11:53
PROVIDERS: ATTEND Physician Assistant
DX: R74.8 Abnormal levels of other serum enzymes (principal); I25.10 Atherosclerotic heart disease of native coronary artery without angina pectoris

== ENCOUNTER → 2023-11-08 | Outpatient (REF) | payer MEDICARE ==
[2023-11-08 14:43] LABS: BASO # 0.1 10^3/uL (0.0-0.2); EOS # 0.1 10^3/uL (0.0-0.5); EOS % 1.1 % (0.0-3.0); HEMATOCRIT 39.1 % (36.0-47.0); HEMOGLOBIN 13.6 g/dl (12.0-15.5); LYMPH # 1.4 10^3/uL (1.5-5.0); LYMPH % 19.4 % (24.0-44.0); MEAN CORPUSCULAR HEMOGLOBIN 31.5 pg (27.0-33.0); MEAN CORPUSCULAR HGB CONC 34.8 g/dl (32.0-36.5); MEAN CORPUSCULAR VOLUME 90.5 fl (80.0-96.0); MONO # 0.6 10^3/uL (0.0-0.8); MONO % 7.8 % (2.0-8.0); NEUTROPHILS % 70.4 % (36.0-66.0); PLATELET COUNT, AUTOMATED 270 10^3/uL (150-450); RED BLOOD COUNT 4.32 10^6/uL (4.00-5.40); WHITE BLOOD COUNT 7.1 10^3/uL (4.0-10.0)
[2023-11-08 14:49] LABS: ALBUMIN 4.2 G/DL (3.2-5.2); ALKALINE PHOSPHATASE 133 U/L (46-116); ALT/SGPT 25 U/L (7.0-40); AST/SGOT 17 U/L (<34); BILIRUBIN,TOTAL 0.5 MG/DL (0.3-1.2); BLOOD UREA NITROGEN 19 MG/DL (9-23); CALCIUM LEVEL 9.4 MG/DL (8.3-10.6); CARBON DIOXIDE LEVEL 28 MMOL/L (20-31); CHLORIDE LEVEL 106 MMOL/L (98-107); CREATININE FOR GFR 0.71 MG/DL (0.55-1.30); GLOMERULAR FILTRATION RATE > 60.0 (>39); GLUCOSE, FASTING 95 MG/DL (74-106); IRON (FE) 95 UG/DL (50-170); PERCENT SATURATION 30.4 % (13.2-45.0); POTASSIUM SERUM 4.6 MMOL/L (3.5-5.1); SODIUM LEVEL 142 MMOL/L (136-145); TOTAL IRON BINDING CAPACITY 312 UG/DL (250-425); TOTAL PROTEIN 6.7 G/DL (5.7-8.2)
[2023-11-08 14:51] LABS: FERRITIN 87.8 NG/ML (7.3-270.7); FREE T4 1.23 NG/DL (0.89-1.76); THYROID STIMULATING HORMONE 0.832 uIU/ML (0.55-4.78)
[2023-11-08 14:52] LABS: VITAMIN B12 LEVEL 511 PG/ML (211-911)
== END ==
LOC: M SFHCADAM 09:00
PROVIDERS: ATTEND Physician Assistant
DX: R21 Rash and other nonspecific skin eruption (principal); D50.9 Iron deficiency anemia, unspecified; E07.9 Disorder of thyroid, unspecified

== ENCOUNTER → 2023-11-29 | Outpatient (CLI) | payer MEDICARE | LOC: M ADAMS 09:00 | PROVIDERS: ATTEND Physician Assistant | DX: J18.9 Pneumonia, unspecified organism (principal) ==

== ENCOUNTER → 2023-12-13 | Outpatient (CLI) | payer MEDICARE ==
[2023-12-13 17:52] LABS: APPEARANCE, URINE CLEAR (CLEAR); BACTERIA, URINE AUTO NEGATIVE (NEGATIVE); BILIRUBIN, URINE AUTO NEGATIVE (NEGATIVE); BLOOD, URINE BLOOD NEGATIVE (NEGATIVE); COLOR, URINE YELLOW (YELLOW); GLUCOSE, URINE (UA) AUTO NEGATIVE (NEGATIVE); KETONE, URINE AUTO NEGATIVE (NEGATIVE); LEUKOCYTE ESTERASE, URINE AUTO NEGATIVE (NEGATIVE); NITRITE, URINE AUTO NEGATIVE (NEGATIVE); PROTEIN, URINE AUTO NEGATIVE (NEGATIVE); RBC, URINE AUTO 3 /HPF (0-3); SPECIFIC GRAVITY URINE AUTO 1.016 (1.002-1.035); SQUAMOUS EPITHELIAL CELL UR AU 0 /HPF (0-6); UROBILINOGEN, URINE AUTO 0.2 mg/dL (0.0-2.0); WBC, URINE AUTO 1 /HPF (0-3)
[2023-12-13 18:05] LABS: C REACTIVE PROTEIN QUANTITATIV < 0.40 MG/DL (<1.0)
[2023-12-13 18:06] LABS: CHOLESTEROL RISK RATIO 2.99 (<5); COMPLEMENT C3 116.4 MG/DL (90.0-170.0); COMPLEMENT C4 31.1 MG/DL (12-36); HDL CHOLESTEROL 58.7 MG/DL (>40); LDL CHOLESTEROL 81.9 MG/DL (<100); NON-HDL-C 117.3 MG/DL
[2023-12-15 11:53] LABS: ANTI CENTROMERE ANTIBODY <1.0 NEG AI (<1.0 NEG); ANTI SMITH(Sm) AB <1.0 NEG AI (<1.0 NEG)
[2023-12-15 14:42] LABS: ANA SCREEN, IFA NEGATIVE (NEGATIVE)
== END ==
LOC: M WHC 14:31
PROVIDERS: ATTEND Physician Assistant
DX: I25.10 Atherosclerotic heart disease of native coronary artery without angina pectoris (principal); L30.9 Dermatitis, unspecified; Z79.01 Long term (current) use of anticoagulants

== ENCOUNTER → 2023-12-19 | Outpatient (CLI) | payer MEDICARE | LOC: M WHC 09:22 | PROVIDERS: ATTEND Physician Assistant | DX: Z12.31 Encounter for screening mammogram for malignant neoplasm of breast (principal) ==

== ENCOUNTER → 2024-02-06 | Outpatient (REF) | payer MEDICARE ==
[2024-02-06 13:49] LABS: BLOOD UREA NITROGEN 21 MG/DL (9-23); CALCIUM LEVEL 9.8 MG/DL (8.3-10.6); CARBON DIOXIDE LEVEL 28 MMOL/L (20-31); CHLORIDE LEVEL 106 MMOL/L (98-107); CHOLESTEROL LEVEL 124 MG/DL (<200); CHOLESTEROL RISK RATIO 2.33 (<5); CREATININE FOR GFR 0.76 MG/DL (0.55-1.30); GLOMERULAR FILTRATION RATE > 60.0 (>39); GLUCOSE, FASTING 141 MG/DL (74-106); LDL CHOLESTEROL 47.4 MG/DL (<100); POTASSIUM SERUM 4.6 MMOL/L (3.5-5.1); SODIUM LEVEL 139 MMOL/L (136-145); TRIGLYCERIDES LEVEL 118 MG/DL (<150)
== END ==
LOC: M LAB REF 13:14
PROVIDERS: ATTEND Internal Medicine Cardiovascular Disease
DX: I10 Essential (primary) hypertension (principal); E78.00 Pure hypercholesterolemia, unspecified

== ENCOUNTER → 2024-03-21 | Outpatient (REF) | payer MEDICARE ==
[~2024-03-21] MED LIST changes: -CRAN500C11 PO; +CVS500CA5 PO; +LEVA15HF2 INH; -LEVAINH INH
[2024-03-21 19:24] LABS: CPK CREATINE PHOSPHOKINASE 85 U/L (34-145)
[2024-03-21 19:25] LABS: TOTAL 25(OH) VITAMIN D 45.6 NG/ML (20.0-100.0)
[2024-03-21 19:26] LABS: FOLATE > 24.0 NG/ML (>5.4)
[2024-03-21 19:27] LABS: VITAMIN B12 LEVEL 480 PG/ML (211-911)
== END ==
LOC: M SFHCADAM 11:43
PROVIDERS: ATTEND Physician Assistant
DX: M54.32 Sciatica, left side (principal); M54.2 Cervicalgia; M79.7 Fibromyalgia; Z28.21 Immunization not carried out because of patient refusal; Z79.899 Other long term (current) drug therapy

== ENCOUNTER → 2024-04-25 | Outpatient (CLI) | payer MEDICARE | LOC: M PLARAD 08:08 | PROVIDERS: ATTEND Physician Assistant | DX: M54.2 Cervicalgia (principal) ==

== ENCOUNTER → 2024-05-02 | Outpatient (REF) | payer MEDICARE ==
[2024-05-02 17:25] LABS: HEMATOCRIT 38.5 % (36.0-47.0); MEAN CORPUSCULAR HEMOGLOBIN 31.3 pg (27.0-33.0); MEAN CORPUSCULAR HGB CONC 33.8 g/dl (32.0-36.5); MEAN CORPUSCULAR VOLUME 92.8 fl (80.0-96.0); PLATELET COUNT, AUTOMATED 287 10^3/uL (150-450); RED BLOOD COUNT 4.15 10^6/uL (4.00-5.40); WHITE BLOOD COUNT 8.5 10^3/uL (4.0-10.0)
[2024-05-02 18:10] LABS: ALBUMIN 4.1 G/DL (3.2-5.2); BILIRUBIN,TOTAL 0.3 MG/DL (0.3-1.2); CALCIUM LEVEL 9.9 MG/DL (8.3-10.6); CREATININE FOR GFR 1.17 MG/DL (0.55-1.30); GLOMERULAR FILTRATION RATE 48.5 (>39)
== END ==
LOC: M SFHCADAM 13:47
PROVIDERS: ATTEND Physician Assistant
DX: I27.20 Pulmonary hypertension, unspecified (principal); I10 Essential (primary) hypertension

== ENCOUNTER → 2024-06-13 | Outpatient (REF) | payer MEDICARE | LOC: M SFHCADAM 10:35 | PROVIDERS: ATTEND Physician Assistant | DX: R21 Rash and other nonspecific skin eruption (principal); Z53.9 Procedure and treatment not carried out, unspecified reason ==

== ENCOUNTER → 2024-06-24 | Outpatient (REF) | payer MEDICARE ==
[2024-06-24 18:36] LABS: ALKALINE PHOSPHATASE 93 U/L (35-104); ALT/SGPT 21 U/L (7.0-40); AST/SGOT 17 U/L (<34); BILIRUBIN,TOTAL 0.4 MG/DL (0.3-1.2); BLOOD UREA NITROGEN 28 MG/DL (9-23); CALCIUM LEVEL 9.8 MG/DL (8.3-10.6); CARBON DIOXIDE LEVEL 27 MMOL/L (20-31); CHLORIDE LEVEL 103 MMOL/L (98-107); CREATININE FOR GFR 0.96 MG/DL (0.55-1.30); GLOMERULAR FILTRATION RATE > 60.0 (>39); GLUCOSE, FASTING 152 MG/DL (74-106); POTASSIUM SERUM 4.3 MMOL/L (3.5-5.1); SODIUM LEVEL 139 MMOL/L (136-145); TOTAL PROTEIN 6.5 G/DL (5.7-8.2)
== END ==
LOC: M SFHCADAM 13:31
PROVIDERS: ATTEND Physician Assistant
DX: R21 Rash and other nonspecific skin eruption (principal)

== ENCOUNTER → 2024-07-19 | Outpatient (CLI) | payer MEDICARE | LOC: M PLARAD 14:01 | PROVIDERS: ATTEND Pain Medicine Interventional Pain Medicine | DX: M54.16 Radiculopathy, lumbar region (principal) ==

== ENCOUNTER → 2024-08-16 | Outpatient (REF) | payer MEDICARE ==
[2024-08-16 17:30] LABS: BASO # 0.1 10^3/uL (0.0-0.2); BASO % 0.7 % (0.0-1.0); EOS # 0.1 10^3/uL (0.0-0.5); EOS % 0.7 % (0.0-3.0); HEMATOCRIT 36.6 % (36.0-47.0); HEMOGLOBIN 12.7 g/dl (12.0-15.5); LYMPH # 1.5 10^3/uL (1.5-5.0); LYMPH % 20.1 % (24.0-44.0); MEAN CORPUSCULAR HEMOGLOBIN 31.1 pg (27.0-33.0); MEAN CORPUSCULAR HGB CONC 34.7 g/dl (32.0-36.5); MEAN CORPUSCULAR VOLUME 89.7 fl (80.0-96.0); MONO # 0.6 10^3/uL (0.0-0.8); MONO % 8.1 % (2.0-8.0); NEUTROPHILS # 5.2 10^3/uL (1.5-8.5); NEUTROPHILS % 69.9 % (36.0-66.0); PLATELET COUNT, AUTOMATED 334 10^3/uL (150-450); RED BLOOD COUNT 4.08 10^6/uL (4.00-5.40); WHITE BLOOD COUNT 7.4 10^3/uL (4.0-10.0)
[2024-08-16 17:48] LABS: ALBUMIN 4.1 G/DL (3.2-5.2); ALKALINE PHOSPHATASE 94 U/L (35-104); ALT/SGPT 23 U/L (7.0-40); AST/SGOT 24 U/L (<34); BILIRUBIN,TOTAL 0.4 MG/DL (0.3-1.2); BLOOD UREA NITROGEN 31 MG/DL (9-23); CALCIUM LEVEL 10.2 MG/DL (8.3-10.6); CARBON DIOXIDE LEVEL 30 MMOL/L (20-31); CHLORIDE LEVEL 103 MMOL/L (98-107); CREATININE FOR GFR 0.99 MG/DL (0.55-1.30); GLOMERULAR FILTRATION RATE > 60.0 (>39); GLUCOSE, FASTING 95 MG/DL (74-106); MAGNESIUM LEVEL 1.8 MG/DL (1.8-2.4); POTASSIUM SERUM 4.5 MMOL/L (3.5-5.1); SODIUM LEVEL 139 MMOL/L (136-145); TOTAL PROTEIN 6.9 G/DL (5.7-8.2)
== END ==
LOC: M SFHCADAM 10:51
PROVIDERS: ATTEND Physician Assistant
DX: I95.9 Hypotension, unspecified (principal)

== ENCOUNTER → 2025-01-10 | Outpatient (REF) | payer MEDICARE ==
[~2025-01-10] MED LIST changes: +ACYC200C10 PO; -ACYC200C8 PO
[2025-01-10 13:31] LABS: APPEARANCE, URINE CLOUDY (CLEAR); BACTERIA, URINE AUTO 2+ (NEGATIVE); BILIRUBIN, URINE AUTO NEGATIVE (NEGATIVE); BLOOD, URINE BLOOD 2+ (NEGATIVE); GLUCOSE, URINE (UA) AUTO NEGATIVE (NEGATIVE); KETONE, URINE AUTO NEGATIVE (NEGATIVE); LEUKOCYTE ESTERASE, URINE AUTO 3+ (NEGATIVE); NITRITE, URINE AUTO NEGATIVE (NEGATIVE); PROTEIN, URINE AUTO 2+ mg/dL (NEGATIVE); RBC, URINE AUTO 78 /HPF (0-3); SPECIFIC GRAVITY URINE AUTO 1.013 (1.002-1.035); SQUAMOUS EPITHELIAL CELL UR AU 0 /HPF (0-6); UROBILINOGEN, URINE AUTO 0.2 mg/dL (0.0-2.0); WBC, URINE AUTO TNTC /HPF (0-3)
== END ==
LOC: M SFHCPLAZ 12:46
PROVIDERS: ATTEND Physician Assistant Medical
DX: R30.0 Dysuria (principal); R35.0 Frequency of micturition